=== PATIENT | female | born 1950 | race Caucasian/White ===

== ENCOUNTER → 2022-05-01 13:51 | Outpatient (CLI) | payer MEDICARE, OTHER, SELFPAY ==
--- NOTE | 2022-05-01 | DI.MRI.S_ITS ---
PROCEDURE: MR SHOULDER LT WO CON INDICATIONS: ROTATOR CUFF TENDINITIS TECHNIQUE: Noncontrast oblique coronal T2 fast spin echo with fat saturation, oblique sagittal T1 spin echo and T2 fast spin echo with fat saturation, axial T1 spin echo and T2 fast spin echo with fat saturation through the shoulder. COMPARISON: None. FINDINGS: Image quality: Motion degraded Rotator cuff: Bulk: Moderate atrophy of the supraspinatus. Teres minor: Intact Supraspinatus: High-grade and multifocal suspected interstitial tearing extending to the muscle tendon junction. This may partially reflect scar formation from prior injury. There may also be calcific tendinopathy Infraspinatus: Tendinosis Subscapularis: Tendinosis and suspected interstitial tears near the insertion. Bones and bursae: GH joint: Moderate glenohumeral degenerative changes. No confluent marrow edema. There is cartilage loss. Osteophyte formation. AC joint: Moderate acromioclavicular degenerative changes. Humeral head: Overall intact. No edema. Scapula and acromion: Normal morphology Bursa: [id number] bursitis Capsule: Labrum: No discrete anterior labral tear. Possible superior labral tear versus chronic degeneration. Long head biceps tendon: Tendinosis and attenuation of the intra-articular long head biceps tendon. IGHL: Overall intact Rotator interval: Preserved fat signal Soft tissues: No axillary adenopathy. Lungs are not well seen. IMPRESSION: Moderate atrophy of the supraspinatus. Degenerative changes/tendinosis of the rotator cuff with multifocal tears as described above. Moderate acromioclavicular and glenohumeral degenerative changes. Suspected superior labral chronic injury. The labrum is not well evaluated on this non arthrographic study. Dictated by: Raj Villar M.D. on 05/01/2022 at 15:52 Approved by: Raj Villar M.D. on 05/01/2022 at 16:02
== END ==
PROVIDERS: Referring Provider Family Medicine; Visit Provider Family Medicine
DX: M75.82 Other shoulder lesions, left shoulder (principal); M62.512 Muscle wasting and atrophy, not elsewhere classified, left shoulder; M75.102 Unspecified rotator cuff tear or rupture of left shoulder, not specified as traumatic
CPT/HCPCS: 73221

== ENCOUNTER → 2023-10-31 15:42 | Outpatient (CLI) | payer MEDICARE, OTHER, SELFPAY ==
--- NOTE | 2023-10-31 15:44 | DI.RAD.S_ITS ---
PROCEDURE: XR DEXA AXIAL SKELETON INDICATIONS: DEXA COMPARISON: None. FINDINGS: Lumbar Spine: Bone mineral density 1.287 g/cm2, T score 2.2. Left Hip: Bone mineral density 0.914 g/cm2, T score -0.2. Left Femoral Neck: Bone mineral density 0.791 g/cm2, T score -0.5. Right Hip: Bone mineral density 0.942 g/cm2, T score 0.0. Right Femoral Neck: Bone mineral density 0.737 g/cm2, T score -1.0. Fracture Risk Calculation (when applicable): 10-year fracture risk of a major osteoporotic fracture 9% without prior fracture, 14% with prior fracture and of a hip fracture 1.1% without prior fracture, 1.6% with prior fracture. (T score greater or equal to -1.0 to: NORMAL) (T score from -1.1 to -2.4: OSTEOPENIA) (T score less than or equal to -2.5: OSTEOPOROSIS) IMPRESSION: No osteopenia or osteoporosis of the lumbar spine or the bilateral hips. Follow-up guidelines as follows: Osteoporosis: Consider a repeat DEXA and Vertebral Fracture Assessment (VFA) exam in 2 years or sooner if medically necessary, to reassess this patient's status. Osteopenia: Consider a repeat DEXA in 2-3 years to reassess this patient's status, or if there is a new clinical indication. Normal: Consider a repeat DEXA in 5 years or sooner, or if there is a new clinical indication. Dictated by: Netta Mcginnis M.D. on 10/31/2023 at 17:09 Approved by: Netta Mcginnis M.D. on 10/31/2023 at 17:10
--- NOTE | 2023-10-31 15:44 | DI.RAD.S_ITS ---
PROCEDURE: XR SHOULDER RT MIN 2V INDICATIONS: Tingling of Rt Arm TECHNIQUE: 3 views of the shoulder were acquired. COMPARISON: None. FINDINGS: Bones: No fractures or dislocations. No suspicious bony lesions. Visualized ribs appear intact. Moderate to severe acromioclavicular and glenohumeral degenerative narrowing. Very minimal periarticular osteophytes. No erosions. Soft tissues: No suspicious soft tissue calcifications. IMPRESSION: Acromioclavicular and glenohumeral arthritic change. Dictated by: Sunita Wagoner M.D. on 11/01/2023 at 11:18 Approved by: Sunita Wagoner M.D. on 11/01/2023 at 11:19
== END ==
PROVIDERS: PCP Family Medicine; Referring Provider Family Medicine; Visit Provider Family Medicine
DX: Z13.820 Encounter for screening for osteoporosis; M81.0 Age-related osteoporosis without current pathological fracture; R20.2 Paresthesia of skin; R20.0 Anesthesia of skin
CPT/HCPCS: 73030; 77080

== ENCOUNTER → 2023-12-06 11:28 | Outpatient (CLI) | payer MEDICARE, OTHER, SELFPAY | LOC: PHYS 11:30 | PROVIDERS: Family Provider Family Medicine; PCP Family Medicine; Referring Provider Family Medicine; Visit Provider Family Medicine | DX: R20.1 Hypoesthesia of skin (principal) | CPT/HCPCS: 95885; 95886; 95912 ==

== ENCOUNTER → 2023-12-07 08:07 | Outpatient (CLI) | payer MEDICARE, OTHER, SELFPAY ==
--- NOTE | 2023-12-07 08:08 | DI.MG.S_ITS ---
BILATERAL DIGITAL SCREENING MAMMOGRAM 3D/2D WITH CAD: 12/07/2023 CLINICAL: Routine screening. Comparison is made to exams dated: 03/11/2018 mammogram and 03/08/2017 mammogram - outside facility. Both breasts are almost entirely fatty (category a/<25% glandular tissue). Current study was also evaluated with a Computer Aided Detection (CAD) system. No significant masses, calcifications, or other findings are seen in either breast. There has been no significant interval change. IMPRESSION: NEGATIVE There is no mammographic evidence of malignancy. A 1 year screening mammogram is recommended. Based on the Tyrer Cuzick model (a risk assessment model) the patient's lifetime risk is 2.5% and her 10 year risk is 1.9%. According to the ACR, ACS, and NCCN guidelines, an annual breast MRI exam along with mammogram is recommended if the patient's lifetime risk is 20% or greater. This exam was interpreted at Station ID: [id number]. NOTE: For mammograms, a report in lay terms will be sent to the patient. Approximately 15% of breast malignancies will not be visualized mammographically. In the management of a palpable breast mass, a negative mammogram must not discourage biopsy of a clinically suspicious lesion. Electronically Signed By: Raj erazo/mitul:12/07/2023 09:07:33 letter sent: Normal Exam ACR BI-RADS Category 1: Negative [id number]
== END ==
PROVIDERS: Family Provider Family Medicine; PCP Family Medicine; Referring Provider Family Medicine; Visit Provider Family Medicine
DX: Z12.31 Encounter for screening mammogram for malignant neoplasm of breast (principal); R92.313 Mammographic fatty tissue density, bilateral breasts
CPT/HCPCS: 77063; 77067

== ENCOUNTER → 2024-06-01 13:01 | Outpatient (CLI) | payer MEDICARE, OTHER, SELFPAY ==
--- NOTE | 2024-06-01 13:02 | DI.MRI.S_ITS ---
PROCEDURE: MR HEAD/BRAIN WO/W CON INDICATIONS: chronic daily HULL s/p head trauma TECHNIQUE: Noncontrast axial T1 spin echo, axial T2 fast spin echo, sagittal and axial FLAIR, coronal T2 fast spin echo, axial gradient echo, axial diffusion and ADC through the brain. After the administration of contrast, axial and coronal and sagittal T1 spin echo with fat saturation through the brain. COMPARISON: None. FINDINGS: Image quality: Excellent. CSF spaces: Basal cisterns are patent. No extra-axial fluid collections. Ventricles are normal in size and shape. Brain: No midline shift. No intracranial bleeds or masses. No abnormal intracranial enhancement. There is cerebral volume loss for age. There is periventricular white matter chronic small vessel ischemic change. The brainstem appears normal. Diffusion-weighted images demonstrate no acute infarct. No chronic ischemic insults. Normal intravascular flow voids are present. Skull and face: Calvarial marrow is normal in signal. Orbits appear normal. Sinuses: Sinuses and mastoids appear clear. IMPRESSION: No imaging explanation is found for this patient's presenting symptoms. No masses or abnormal enhancement can be seen. Dictated by: Adam Manjarrez M.D. on 06/02/2024 at 12:09 Approved by: Adam Manjarrez M.D. on 06/02/2024 at 12:10
== END ==
PROVIDERS: Family Provider Family Medicine; PCP Family Medicine; Referring Provider Family Medicine; Visit Provider Family Medicine
DX: G93.0 Cerebral cysts (principal); G44.329 Chronic post-traumatic headache, not intractable
CPT/HCPCS: 70553; A9579

== ENCOUNTER → 2024-06-13 14:56 | Outpatient (CLI) | payer MEDICARE, OTHER, SELFPAY ==
--- NOTE | 2024-06-13 15:03 | DI.RAD.S_ITS ---
PROCEDURE: XR CHEST 2V INDICATIONS: Subacute cough x6 weeks TECHNIQUE: 2 views of the chest were acquired. COMPARISON: None. FINDINGS: Surgical changes and devices: None. Lungs and pleura: Increased bronchovascular markings in bilateral hilar region are seen with bronchial wall thickening. No focal infiltrate. No pleural effusions or pneumothorax. Mediastinum: Mediastinal contours are normal. Heart size is normal. Bones and chest wall: No suspicious bony abnormalities. Soft tissues appear unremarkable. IMPRESSION: Suggestion of reactive airway disease such as bronchitis or viral illness. No focal infiltrate, pleural effusion or pneumothorax. Dictated by: Ramesh Xavier M.D. on 06/13/2024 at 17:24 Approved by: Ramesh Xavier M.D. on 06/13/2024 at 17:24
[2024-06-13 16:15] LABS: Hematocrit 42.2 % (36-46); Hemoglobin 14.1 g/dL (12.0-16.0); Mean Corpuscular HGB Conc 33.4 % (30-36); Mean Corpuscular Hemoglobin 31.6 PG (26-34); Mean Corpuscular Volume 94.6 fL (80-100); Platelet Count 266 X10^3/uL (150-400); Red Blood Cell Count 4.46 X10^6/uL (4.0-5.2); Red Cell Distribution Width 13.4 % (11.6-14.8); White Blood Cell Count 6.8 X10^3/uL (4.5-11.0)
[2024-06-13 16:31] LABS: Alanine Aminotransferase 32 IU/L (<35); Albumin 4.2 g/dL (3.5-5.0); Albumin Globulin Ratio 1.4 (1.0-2.8); Alkaline Phosphatase 117 U/L (38-126); Aspartate Aminotransferase 34 IU/L (14-36); Bilirubin Total 0.4 mg/dL (0.2-1.3); Blood Urea Nitrogen 27 mg/dL (7-17); Calcium 9.5 mg/dL (8.4-10.2); Carbon Dioxide 30 mmol/L (22-32); Chloride 102 mmol/L (98-107); Estimated Glomerular Filt Rate 55 mL/min (>60); Globulin 3.1 g/dL (1.7-4.1); Glucose 104 mg/dL (80-110); HEMOLYSIS < 15 (0-50); Potassium 3.7 mmol/L (3.4-5.1); Sodium 138 mmol/L (137-145); Total Protein 7.3 g/dL (6.3-8.2)
[2024-06-13 16:47] LABS: Procalcitonin 0.055 ng/mL (<0.5)
== END ==
PROVIDERS: Family Provider Family Medicine; PCP Family Medicine; Referring Provider Family Medicine; Visit Provider Family Medicine
DX: R05.9 Cough, unspecified (principal); J20.9 Acute bronchitis, unspecified; I10 Essential (primary) hypertension; E78.5 Hyperlipidemia, unspecified; M79.7 Fibromyalgia
CPT/HCPCS: 36415; 71046; 80053; 84145; 85027

== ENCOUNTER → 2024-10-14 16:51 | Outpatient (CLI) | payer MEDICARE, OTHER, SELFPAY ==
--- NOTE | 2024-10-14 17:00 | DI.RAD.S_ITS ---
PROCEDURE: XR SHOULDER RT MIN 2V INDICATIONS: Right Shoulder Pain TECHNIQUE: Three views of the right shoulder were acquired. COMPARISON: Located Within [facility], , XR SHOULDER RT MIN 2V, 10/31/2023, 15:57. FINDINGS: Bones: There are no osseous abnormalities. Acromioclavicular and glenohumeral joints: Mild acromioclavicular and glenohumeral degenerative change appreciated. Soft tissues: No soft tissue swelling, calcification or mass. IMPRESSION: Mild degeneration. Dictated by: Kennedy Mota M.D. on 10/15/2024 at 10:41 Approved by: Kennedy Mota M.D. on 10/15/2024 at 10:41
== END ==
PROVIDERS: Family Provider Family Medicine; PCP Family Medicine; Referring Provider Family Medicine; Visit Provider Family Medicine
DX: M19.011 Primary osteoarthritis, right shoulder (principal); M25.511 Pain in right shoulder
CPT/HCPCS: 73030

== ENCOUNTER → 2024-12-11 10:42 | Outpatient (CLI) | payer MEDICARE, OTHER, SELFPAY ==
[2024-12-11 11:20] LABS: Add Manual Diff / Slide Review NO; Hematocrit 40.3 % (36-46); Hemoglobin 13.4 g/dL (12.0-16.0); Lymphocytes Absolute Auto 1400 /uL (1100-4500); Mean Corpuscular HGB Conc 33.3 % (30-36); Mean Corpuscular Hemoglobin 31.9 PG (26-34); Mean Corpuscular Volume 95.6 fL (80-100); Platelet Count 266 X10^3/uL (150-400)
[2024-12-11 12:36] LABS: Alanine Aminotransferase 20 IU/L (<35); Albumin 4.1 g/dL (3.5-5.0); Albumin Globulin Ratio 1.4 (1.0-2.8); Alkaline Phosphatase 123 U/L (38-126); Blood Urea Nitrogen 21 mg/dL (7-17); Calcium 9.5 mg/dL (8.4-10.2); Carbon Dioxide 32 mmol/L (22-32); Chloride 101 mmol/L (98-107); Cholesterol 206 mg/dL (140-199); Estimated Glomerular Filt Rate > 60 mL/min (>60); Globulin 2.9 g/dL (1.7-4.1); Glucose 113 mg/dL (70-99); HDL Cholesterol 75 mg/dL (40-60); HEMOLYSIS < 15 (0-50); Potassium 3.9 mmol/L (3.4-5.1); Sodium 139 mmol/L (137-145); Total Protein 7.0 g/dL (6.3-8.2); Triglycerides 155 mg/dL (35-150)
[2024-12-11 13:17] LABS: Microalbumi Creatinin Ratio Ur 13.0 ug/mg CR (<30)
[2024-12-11 16:40] LABS: HIV 1 & 2 Ab/Ag 4th Gen Combo NEGATIVE (NEGATIVE); Hep C Virus Ab w/Reflex Quant NEGATIVE s/c (NEGATIVE)
== END ==
PROVIDERS: Family Provider Family Medicine; PCP Family Medicine; Referring Provider Family Medicine; Visit Provider Family Medicine
DX: Z11.4 Encounter for screening for human immunodeficiency virus [HIV] (principal); Z11.59 Encounter for screening for other viral diseases; I10 Essential (primary) hypertension; E78.5 Hyperlipidemia, unspecified
CPT/HCPCS: 36415; 80053; 80061; 82043; 82570; 85025; 86803; 87389

== ENCOUNTER → 2025-03-19 11:57 | Outpatient (CLI) | payer MEDICARE, OTHER, SELFPAY ==
--- NOTE | 2025-03-19 11:59 | DI.RAD.S_ITS ---
PROCEDURE: ORTHO-XR HIP BILAT W/PEL 3-4 INDICATIONS: chronic hip/knee pain TECHNIQUE: 3 views of the hip were acquired. COMPARISON: None. FINDINGS: Bones: No fractures or dislocations. [id number] bilateral hip joint degeneration with joint space narrowing and osteophytosis. No suspicious bony lesions. The visualized pelvic ring appears intact. Degenerative changes of the visualized lower lumbar spine and pubic symphysis. Soft tissues: No suspicious soft tissue calcifications or masses. IMPRESSION: [id number]-[id number] bilateral hip joint degeneration. No acute osseous abnormalities. Dictated by: Jesús Velez M.D. on 03/20/2025 at 15:02 Approved by: Jesús Velez M.D. on 03/20/2025 at 15:02
--- NOTE | 2025-03-19 11:59 | DI.RAD.S_ITS ---
PROCEDURE: XR KNEE STANDING BI INDICATIONS: chronic hip/knee pain TECHNIQUE: 1 views of the knee(s) COMPARISON: None. FINDINGS: Bones: No acute fractures or dislocations. Patellar alignment is normal on the sunrise view. No suspicious bony lesions. Tricompartmental osteoarthritic changes of the bilateral knees with joint space narrowing and osteophytosis. Moderate to severe lateral compartment joint space narrowing bilaterally. Screw within the left proximal tibia. Soft tissues: No knee joint effusions. No suspicious soft tissue calcification. Chondrocalcinosis bilaterally. 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 Chondrocalcinosis is present. Differential diagnosis includes but is not limited to hemochromatosis, hyperparathyroidism and CPPD. Dictated by: Jesús Velez M.D. on 03/20/2025 at 15:00 Approved by: Jesús Velez M.D. on 03/20/2025 at 15:01
== END ==
PROVIDERS: Family Provider Family Medicine; PCP Family Medicine; Referring Provider Family Medicine; Visit Provider Family Medicine
DX: M11.261 Other chondrocalcinosis, right knee (principal); M11.262 Other chondrocalcinosis, left knee; M16.0 Bilateral primary osteoarthritis of hip
CPT/HCPCS: 73522; 73565

== ENCOUNTER → 2025-03-26 14:41 | Outpatient (CLI) | payer MEDICARE, OTHER, SELFPAY ==
--- NOTE | 2025-03-26 14:42 | DI.MG.S_ITS ---
MM screening mammo BI: 03/26/2025. BI-RADS: 1 CLINICAL: 74-year old female for bilateral screening mammogram. Tyrer-Cuzick lifetime risk of 1.4%. No personal or first-degree family history of breast cancer. PRIOR EXAMS 12/07/2023. MAMMOGRAPHY TECHNIQUE: 2D and 3D (tomosynthesis) digital mammographic views obtained, with additional images as needed for full coverage. Current study was also evaluated with a Computer Aided Detection (CAD) system. DENSITY A. The breasts are almost entirely fatty. MAMMOGRAPHY FINDINGS Bilateral: No suspicious mass, asymmetry, microcalcification, or other abnormality seen. IMPRESSION: * No evidence of malignancy. RECOMMENDATIONS Bilateral * Annual screening mammography. OVERALL ASSESSMENT CATEGORY BI-RADS-1: Negative. The [employer] recommends annual screening mammography beginning at age 40 for women with average risk of breast cancer. ELECTRONICALLY SIGNED: Katarzyna Chu M.D. on 03/30/2025 at 11:38:15 AM PT Interpreting Station ID: [id number]
== END ==
LOC: MAMMO 14:42
PROVIDERS: Family Provider Family Medicine; PCP Family Medicine; Referring Provider Family Medicine; Visit Provider Family Medicine
DX: Z12.31 Encounter for screening mammogram for malignant neoplasm of breast (principal); R92.313 Mammographic fatty tissue density, bilateral breasts
CPT/HCPCS: 77063; 77067